=== PATIENT | female | born 1990 | race Two or more races ===

== ENCOUNTER 2024-02-16 14:54 | Outpatient (CLI) | payer OTHER | END 2024-02-16 14:56 | disposition home or self-care (01) | LOC: PRENATAL 14:54 | PROVIDERS: ATTEND Obstetrics & Gynecology Maternal & Fetal Medicine | DX: O36.80X0 Pregnancy with inconclusive fetal viability, not applicable or unspecified (principal); Z36.82 Encounter for antenatal screening for nuchal translucency ==